=== PATIENT | female | born 1985 | race Caucasian/White ===

== ENCOUNTER 2016-09-05 21:07 | Emergency (ER) | payer OTHER ==
--- NOTE | 2016-09-05 21:59 | DIAGNOSTIC IMAGING REPORT ---
PROCEDURE: XR CHEST 2 VIEW INDICATION: SHORTNESS OF BREATH TECHNIQUE: PA and lateral view. COMPARISON: None. FINDINGS: Lungs are clear. Cardiovascular structures are normal. Bony thorax is unremarkable. IMPRESSION: 1. Negative chest.
--- NOTE | 2016-09-06 00:23 | ED ORDER SUMMARY ---
..... Patient: RIVAS STORY OrderSheet [facility] VisitID: [id number] [address] [place] [address] 30y, F Registration Date/Time: 09/05/2016 ORDER SHEET Weight: 149.6 kg (stated) Allergies: Latex, Penicill, Penicillin, Sulfa Antibiotics, Amitriptyline, Nortriptyline GENERAL ORDERS: UA-Culture if indicated Urgent (21:09/05/2016 Kody CANDELARIO) (Ack 21:35 CHagerty ER Finance Associate) (22:37 CHagerty ER Finance Associate) Cardiac Panel Stat (:09/05/2016 Kody CANDELARIO) (21:35 MCook R.N.) (Ack 21:35 CHagerty ER Finance Associate) PT with INR Urgent (:09/05/2016 Kody CANDELARIO) (21:35 MCook R.N.) (Ack 21:35 CHagerty ER Finance Associate) BNP Urgent (:09/05/2016 Kody CANDELARIO) (21:35 MCook R.N.) (Ack 21:35 CHagerty ER Finance Associate) D-Dimer Urgent (:09/05/2016 Kody CANDELARIO) (21:35 MCook R.N.) (Ack 21:35 CHagerty ER Finance Associate) Lipase Urgent (:09/05/2016 Kody CANDELARIO) (21:35 MCook R.N.) (Ack 21:35 CHagerty ER Finance Associate) Amylase Urgent (:09/05/2016 Kody CANDELARIO) (21:35 MCook R.N.) (Ack 21:35 CHagerty ER Finance Associate) Urine Drug Screen Urgent (21:09/05/2016 Kody CANDELARIO) (Ack 21:35 CHagerty ER Finance Associate) (22:37 CHagerty ER Finance Associate) TSH Urgent (:09/05/2016 Kody CANDELARIO) (21:35 MCook R.N.) (Ack 21:35 CHagerty ER Finance Associate) CRP Urgent (:09/05/2016 Kody CANDELARIO) (21:35 MCook R.N.) (Ack 21:35 CHagerty ER Finance Associate) Grain Mill Products Inspector (Continuous) (21:33 09/05/2016 Kody CANDELARIO) (Ack 21:35 CHagerty ER Finance Associate) (21:40 MCook R.N.) Chest 2V Urgent (21:33 09/05/2016 Kody CANDELARIO) (Ack 21:35 CHagerty ER Finance Associate) (21:48 MCampbell) EKG - ER Stat (21:34 09/05/2016 Kody CANDELARIO) (21:35 Kekek R.N.) (Ack 21:35 CHagerty ER Finance Associate) Pulse oximeter (21:34 09/05/2016 Kody CANDELARIO) (21:35 Kekek R.N.) (Ack 21:35 CHagerty ER Finance Associate) US Venous Bilat Urgent (21:34 09/05/2016 Kody CANDELARIO) (Ack 21:36 CHagerty ER Finance Associate) (22:37 CHagerty ER Finance Associate) Old Records ([place].) (21:40 09/05/2016 Kody CANDELARIO) (Ack 21:53 CHagerty ER Finance Associate) (22:36 CHagerty ER Finance Associate) MEDICATION ORDERS: IV FLUIDS: IV Saline Lock (21:34 09/05/2016 Kody CANDELARIO) (21:40 Elma R.N.) ORDER SHEET NOTES: [Electronically signed by Quinn Nam R.N. (01:09/06/2016)] [Electronically signed by Dominick Beal MD (07:30 09/06/2016)] [Electronically locked/signed by Quinn Nam R.N. (01:09 09/06/2016)]
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
--- NOTE | 2016-09-06 00:23 | ED ORDER SUMMARY ---
..... Patient: RIVAS STORY OrderSheet [facility] VisitID: [id number] [address] [place] [address] 30y, F Registration Date/Time: 09/05/2016 ORDER SHEET Weight: 149.6 kg (stated) Allergies: Latex, Penicill, Penicillin, Sulfa Antibiotics, Amitriptyline, Nortriptyline GENERAL ORDERS: UA-Culture if indicated Urgent (21:09/05/2016 Kody CANDELARIO) (Ack 21:35 CHagerty ER Gauge Operator) (22:37 CHagerty ER Gauge Operator) Cardiac Panel Stat (:09/05/2016 Kody CANDELARIO) (21:35 MCook R.N.) (Ack 21:35 CHagerty ER Gauge Operator) PT with INR Urgent (:09/05/2016 Kody CANDELARIO) (21:35 MCook R.N.) (Ack 21:35 CHagerty ER Gauge Operator) BNP Urgent (:09/05/2016 Kody CANDELARIO) (21:35 MCook R.N.) (Ack 21:35 CHagerty ER Gauge Operator) D-Dimer Urgent (:09/05/2016 Kody CANDELARIO) (21:35 MCook R.N.) (Ack 21:35 CHagerty ER Gauge Operator) Lipase Urgent (:09/05/2016 Kody CANDELARIO) (21:35 MCook R.N.) (Ack 21:35 CHagerty ER Gauge Operator) Amylase Urgent (:09/05/2016 Kody CANDELARIO) (21:35 MCook R.N.) (Ack 21:35 CHagerty ER Gauge Operator) Urine Drug Screen Urgent (21:09/05/2016 Kody CANDELARIO) (Ack 21:35 CHagerty ER Gauge Operator) (22:37 CHagerty ER Gauge Operator) TSH Urgent (:09/05/2016 Kody CANDELARIO) (21:35 MCook R.N.) (Ack 21:35 CHagerty ER Gauge Operator) CRP Urgent (:09/05/2016 Kody CANDELARIO) (21:35 MCook R.N.) (Ack 21:35 CHagerty ER Gauge Operator) Hand Reamer (Continuous) (21:33 09/05/2016 Kody CANDELARIO) (Ack 21:35 CHagerty ER Gauge Operator) (21:40 MCook R.N.) Chest 2V Urgent (21:33 09/05/2016 Kody CANDELARIO) (Ack 21:35 CHagerty ER Gauge Operator) (21:48 MCampbell) EKG - ER Stat (21:34 09/05/2016 Kody CANDELARIO) (21:35 Kekek R.N.) (Ack 21:35 CHagerty ER Gauge Operator) Pulse oximeter (21:34 09/05/2016 Kody CANDELARIO) (21:35 Kekek R.N.) (Ack 21:35 CHagerty ER Gauge Operator) US Venous Bilat Urgent (21:34 09/05/2016 Kody CANDELARIO) (Ack 21:36 CHagerty ER Gauge Operator) (22:37 CHagerty ER Gauge Operator) Old Records ([place] about [place].) (21:40 09/05/2016 Kody CANDELARIO) (Ack 21:53 CHagerty ER Gauge Operator) (22:36 CHagerty ER Gauge Operator) MEDICATION ORDERS: IV FLUIDS: IV Saline Lock (21:34 09/05/2016 Kody CANDELARIO) (21:40 Elma R.N.) ORDER SHEET NOTES: [Electronically signed by Quinn Nam R.N. (01:09/06/2016)] [Electronically signed by Dominick Beal MD (07:30 09/06/2016)] [Electronically locked/signed by Quinn Nam R.N. (01:09 09/06/2016)]
--- NOTE | 2016-09-06 00:23 | ED NURSING NOTES ---
Clinical Report - Nurses [facility] [address] [place] [address] 09/05/2016 21:11 Patient: RIVAS STORY TRIAGE Triage time 21:Sep 05 2016. Chief Complaint: CHEST PAIN and DISCOMFORT and SHORTNESS OF BREATH (Pressure to anterior chest, swelling to BLE). Alert. No acute distress. SEPSIS SCREEN: Sepsis Screen. Negative (no infection suspected/documented). --21:22 Quinn Nam R.N. 21:18 09/05/16. BP: 147/80. HR: 91. RR: 16. O2 saturation: 100% on room air. Pain level now: 11/28. --21:22 Quinn Nam R.N. 21:18 09/05/16. Temp: 98.1 F. --00:52 Quinn Nam R.N. Weight: 149.6 kg stated. Height/Length: 70 inches Per Patient. BMI: 47.3. --21:17 Quinn Nam R.N. Medications Adderall. --21:20 Quinn Nam R.N. Vivanz. --21:20 Quinn Nam R.N. Temazepam Oral. --21:20 Quinn Nam R.N. ClonazePAM Oral. --21:20 Quinn Nam R.N. Allergies Latex. --21:19 Quinn Nam R.N. Penicill. --21:19 Quinn Nam R.N. Penicillin. Sulfa Antibiotics. --21:19 Quinn Nam R.N. Amitriptyline. --21:19 Quinn Nma R.N. Nortriptyline. --21:19 Quinn Nam R.N. History Arrived by private vehicle. Historian: patient. This started today. She has had difficulty breathing. PAST MEDICAL HX: Immunizations: up-to-date. Denies current . --21:22 Quinn Nam R.N. SOCIAL HX: Smoker- current status unknown (cigarette). Occasional alcohol use. History of drug use: marijuana. ABUSE ASSESSMENT: Abuse assessment: The patient was asked "Do you feel safe in your home?". No report of abuse. SELF HARM ASSESSMENT: A self harm assessment was performed. The patient answered "yes" to the question "Have you recently felt down, depressed, or hopeless?" and "Are you here because you tried to hurt yourself?" and "no" to the question "Do you have thoughts of harming or killing yourself?" and "Have you recently had thoughts about harming or killing others?". FALL RISK ASSESSMENT: Fall risk assessment completed. No fall risk identified. NUTRITIONAL RISK ASSESSMENT: The nutritional risk assessment revealed no deficiencies. FUNCTIONAL ASSESSMENT: Functional assessment: no impairments noted. LEARNING NEEDS ASSESSMENT: The learning needs assessment revealed no barriers. SKIN INTEGRITY ASSESSMENT: Skin integrity risk assessment completed. No skin integrity risk identified. --21:24 Quinn Nam R.N. PROBLEMS: Anxiety. Insect Bite(s). Dehydration. Vomiting. LNMP - Last Normal Menstrual Period. Hypertension. Edometriosis. --21:21 Quinn Nam R.N. ADDITIONAL SURGERIES: Appendectomy. Cholecystectomy. . Laparoscopy. Leep procedure. Tonsillectomy & Adenoidectomy. --21:21 Quinn Nam R.N. Hysterectomy. Oophorectomy. Presacral neurectomy. --21:21 Quinn Nam R.N. Assessment The patient states feels the same. --21:24 Quinn Nam R.N. Interventions ID band on patient. To room. --21:24 Quinn Nam R.N. PHYSICAL ASSESSMENT GENERAL / NEURO / PSYCH: Alert. Oriented X 4. Appears in distress. HEENT: Mucous membranes are pink. RESPIRATORY: Mild respiratory distress. No chest pain reproduced on physical exam. CVS: Pulses within normal limits. Capillary refill less than 2 seconds. GI / : Abdomen soft. EXTREMITIES: Bilateral 1+ edema of the lower extremities involving both feet, both ankles and both lower legs. SKIN: Skin is warm and dry. --21:27 Quinn Nam R.N. NURSING PROGRESS NOTES The plan of care for this patient has been created. Monitoring of patient in place. Patient gowned. Head of bed elevated. Reassurance given. Two patient identifiers checked. Call light placed in reach. Bed placed in lowest position. Patient ready for evaluation- chart flagged and ED physician notified. ( MD at bedside assessing Pt, monitoring in place.). --21:28 Quinn Nam R.N. EKG time: (2122). EKG was performed by a tech and shown to the ED physician. Patient ID band checked for patient name and birthdate: patient confirmed. Blood samples drawn from the right antecubital space peripheral IV site by nurse per protocol ; labeled in presence of the patient and sent to lab: rainbow set. Line flushed with 10 mL normal saline post blood draw. --21:29 Quinn Nam R.N. 21:35 09/05/2016 Site #1 started via IV in the right antecubital space with an 20g angiocath, with aseptic technique and good blood return; one attempt. Blood drawn: rainbow set. Labeled in the presence of the patient and sent to the lab. Saline lock flushed with 10 mL saline. --21:40 Quinn Nam R.N. Patient transported to radiology by stretcher with FST21. (21:40 Sep 05 2016). --21:41 Quinn Nam R.N. Patient returned from radiology by stretcher with FST21. (21:49 Sep 05 2016). --21:49 Quinn Nam R.N. Patient ID band checked for patient name and birthdate: patient confirmed. Instructions provided to collect clean catch urine and patient verbalized understanding. Clean catch urine collected with return of gabriele-colored cloudy urine; sample sent to lab for urinalysis and drug screen. Specimen labeled in the presence of the patient. --22:09 Quinn Nam R.N. 22:07 09/05/16. BP: 143/80. HR: 100. RR: 18. O2 saturation: 98% on room air. --22:09 Quinn Nam R.N. 22:37 09/05/16. BP: 120/69. HR: 86. O2 saturation: 97% on room air. --22:38 Quinn Nam R.N. ( US completed.). --22:38 Quinn Nam R.N. 23:16 09/05/16. BP: 128/88. HR: 88. O2 saturation: 94% on room air. --23:16 Quinn Nam R.N. 00:17 09/06/16. BP: 121/64. HR: 80. RR: 16. O2 saturation: 94% on room air. FLACC pain scale: 4/10. --00:18 Quinn Nam R.N. ( Pt is resting, apparently asleep, VSS.). --00:18 Quinn Nam R.N. 00:50 09/06/2016 Site #1 removed upon discharge. Bandaid applied. --00:50 Quinn Nam R.N. DISPOSITION / DISCHARGE Condition at departure: stable. The goals identified in the patient's plan of care were met. No learning barriers present. Discharge instructions provided and reviewed with the patient. Reviewed medication(s) side effects, precautions, dosing and course information. Prescription(s) given to the patient (Lasix). Reviewed referral to a final armature tester for followup. Activity restrictions reviewed (No strenuous activity). Patient verbalized understanding. Written instructions provided in [place]. The patient was discharged home. She left the Emergency Department ambulatory and via private vehicle. Patient driving. --00:44 Quinn Nam R.N. 00:41 09/06/16. BP: 107/61. HR: 95. RR: 16. O2 saturation: 94% on room air. Temp: 97.6 F. Pain level now: 8/10. --00:44 Quinn Nam R.N. ( Pt to drive herself home, she states she will be okay to drive.). --00:50 Quinn Nam R.N. ( Walked Pt out to front doors of ED.). --01:08 Quinn Nam R.N. Locked/Released at 09/06/2016 1:09 by Quinn Nam R.N.
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
--- NOTE | 2016-09-06 00:23 | ED NURSING NOTES ---
Clinical Report - Nurses [facility] [address] [place] [address] 09/05/2016 21:11 Patient: RIVAS STORY TRIAGE Triage time 21:Sep 05 2016. Chief Complaint: CHEST PAIN and DISCOMFORT and SHORTNESS OF BREATH (Pressure to anterior chest, swelling to BLE). Alert. No acute distress. SEPSIS SCREEN: Sepsis Screen. Negative (no infection suspected/documented). --21:22 Quinn Nam R.N. 21:18 09/05/16. BP: 147/80. HR: 91. RR: 16. O2 saturation: 100% on room air. Pain level now: 11/28. --21:22 Quinn Nam R.N. 21:18 09/05/16. Temp: 98.1 F. --00:52 Quinn Nam R.N. Weight: 149.6 kg stated. Height/Length: 70 inches Per Patient. BMI: 47.3. --21:17 Quinn Nam R.N. Medications Adderall. --21:20 Quinn Nam R.N. Vivanz. --21:20 Quinn Nam R.N. Temazepam Oral. --21:20 Quinn Nam R.N. ClonazePAM Oral. --21:20 Quinn Nam R.N. Allergies Latex. --21:19 Quinn Nam R.N. Penicill. --21:19 Quinn Nam R.N. Penicillin. Sulfa Antibiotics. --21:19 Quinn Nam R.N. Amitriptyline. --21:19 Quinn Nam R.N. Nortriptyline. --21:19 Quinn Nam R.N. History Arrived by private vehicle. Historian: patient. This started today. She has had difficulty breathing. PAST MEDICAL HX: Immunizations: up-to-date. Denies current . --21:22 Quinn Nam R.N. SOCIAL HX: Smoker- current status unknown (cigarette). Occasional alcohol use. History of drug use: marijuana. ABUSE ASSESSMENT: Abuse assessment: The patient was asked "Do you feel safe in your home?". No report of abuse. SELF HARM ASSESSMENT: A self harm assessment was performed. The patient answered "yes" to the question "Have you recently felt down, depressed, or hopeless?" and "Are you here because you tried to hurt yourself?" and "no" to the question "Do you have thoughts of harming or killing yourself?" and "Have you recently had thoughts about harming or killing others?". FALL RISK ASSESSMENT: Fall risk assessment completed. No fall risk identified. NUTRITIONAL RISK ASSESSMENT: The nutritional risk assessment revealed no deficiencies. FUNCTIONAL ASSESSMENT: Functional assessment: no impairments noted. LEARNING NEEDS ASSESSMENT: The learning needs assessment revealed no barriers. SKIN INTEGRITY ASSESSMENT: Skin integrity risk assessment completed. No skin integrity risk identified. --21:24 Quinn Nam R.N. PROBLEMS: Anxiety. Insect Bite(s). Dehydration. Vomiting. LNMP - Last Normal Menstrual Period. Hypertension. Edometriosis. --21:21 Quinn Nam R.N. ADDITIONAL SURGERIES: Appendectomy. Cholecystectomy. . Laparoscopy. Leep procedure. Tonsillectomy & Adenoidectomy. --21:21 Quinn Nam R.N. Hysterectomy. Oophorectomy. Presacral neurectomy. --21:21 Quinn Nam R.N. Assessment The patient states feels the same. --21:24 Quinn Nam R.N. Interventions ID band on patient. To room. --21:24 Quinn Nam R.N. PHYSICAL ASSESSMENT GENERAL / NEURO / PSYCH: Alert. Oriented X 4. Appears in distress. HEENT: Mucous membranes are pink. RESPIRATORY: Mild respiratory distress. No chest pain reproduced on physical exam. CVS: Pulses within normal limits. Capillary refill less than 2 seconds. GI / : Abdomen soft. EXTREMITIES: Bilateral 1+ edema of the lower extremities involving both feet, both ankles and both lower legs. SKIN: Skin is warm and dry. --21:27 Quinn Nam R.N. NURSING PROGRESS NOTES The plan of care for this patient has been created. Monitoring of patient in place. Patient gowned. Head of bed elevated. Reassurance given. Two patient identifiers checked. Call light placed in reach. Bed placed in lowest position. Patient ready for evaluation- chart flagged and ED physician notified. ( MD at bedside assessing Pt, monitoring in place.). --21:28 Quinn Nam R.N. EKG time: (2122). EKG was performed by a tech and shown to the ED physician. Patient ID band checked for patient name and birthdate: patient confirmed. Blood samples drawn from the right antecubital space peripheral IV site by nurse per protocol ; labeled in presence of the patient and sent to lab: rainbow set. Line flushed with 10 mL normal saline post blood draw. --21:29 Quinn Nam R.N. 21:35 09/05/2016 Site #1 started via IV in the right antecubital space with an 20g angiocath, with aseptic technique and good blood return; one attempt. Blood drawn: rainbow set. Labeled in the presence of the patient and sent to the lab. Saline lock flushed with 10 mL saline. --21:40 Quinn Nam R.N. Patient transported to radiology by stretcher with [employer]. (21:40 Sep 05 2016). --21:41 Quinn Nam R.N. Patient returned from radiology by stretcher with [employer]. (21:49 Sep 05 2016). --21:49 Quinn Nam R.N. Patient ID band checked for patient name and birthdate: patient confirmed. Instructions provided to collect clean catch urine and patient verbalized understanding. Clean catch urine collected with return of gabriele-colored cloudy urine; sample sent to lab for urinalysis and drug screen. Specimen labeled in the presence of the patient. --22:09 Quinn Nam R.N. 22:07 09/05/16. BP: 143/80. HR: 100. RR: 18. O2 saturation: 98% on room air. --22:09 Quinn Nam R.N. 22:37 09/05/16. BP: 120/69. HR: 86. O2 saturation: 97% on room air. --22:38 Quinn Nam R.N. ( US completed.). --22:38 Quinn Nam R.N. 23:16 09/05/16. BP: 128/88. HR: 88. O2 saturation: 94% on room air. --23:16 Quinn Nam R.N. 00:17 09/06/16. BP: 121/64. HR: 80. RR: 16. O2 saturation: 94% on room air. FLACC pain scale: 4/10. --00:18 Quinn Nam R.N. ( Pt is resting, apparently asleep, VSS.). --00:18 Quinn Nam R.N. 00:50 09/06/2016 Site #1 removed upon discharge. Bandaid applied. --00:50 Quinn Nam R.N. DISPOSITION / DISCHARGE Condition at departure: stable. The goals identified in the patient's plan of care were met. No learning barriers present. Discharge instructions provided and reviewed with the patient. Reviewed medication(s) side effects, precautions, dosing and course information. Prescription(s) given to the patient (Lasix). Reviewed referral to a media monitor for followup. Activity restrictions reviewed (No strenuous activity). Patient verbalized understanding. Written instructions provided in Brazilian. The patient was discharged home. She left the Emergency Department ambulatory and via private vehicle. Patient driving. --00:44 Quinn Nam R.N. 00:41 09/06/16. BP: 107/61. HR: 95. RR: 16. O2 saturation: 94% on room air. Temp: 97.6 F. Pain level now: 8/10. --00:44 Quinn Nam R.N. ( Pt to drive herself home, she states she will be okay to drive.). --00:50 Quinn Nam R.N. ( Walked Pt out to front doors of ED.). --01:08 Quinn Nam R.N. Locked/Released at 09/06/2016 1:09 by Quinn Nam R.N.
--- NOTE | 2016-09-06 00:28 | DIAGNOSTIC IMAGING REPORT ---
PROCEDURE: US VENOUS - BILATERAL EXT INDICATION: SWELLING TECHNIQUE: Color Doppler duplex imaging of the deep and superficial venous system without and with compression. COMPARISON: None. FINDINGS: RIGHT LOWER EXTREMITY: Deep and superficial venous system of the right lower extremity is within normal limits. There is no evidence of deep vein thrombosis or superficial thrombophlebitis. LEFT LOWER EXTREMITY: Deep and superficial venous system of the left lower extremity is within normal limits. There is no evidence of deep vein thrombosis or superficial thrombophlebitis. IMPRESSION: 1. Negative venous ultrasound of the bilateral lower extremities.
--- NOTE | 2016-09-06 07:30 | ED MED RECONCILIATION SUMMARY ---
Patient: RIVAS STORY Medication Reconciliation Report [facility] VisitID: [id number] [address] [place] [address] 30y, F Registration Date/Time: 09/05/2016 Weight: 149.6 kg Height/Length: 70 in. BMI: 47.3 ALLERGIES: Amitriptyline, Latex, Nortriptyline, Penicill, Penicillin, Sulfa Antibiotics The patient's Home Medications are listed below: CONTINUE TAKING THE FOLLOWING MEDICATIONS: Adderall ClonazePAM Oral Temazepam Oral Vivanz The source(s) of the original Home Medication information: Not obtained. The following Medications were given to the patient in the Emergency Department: None. The following Medications were prescribed to the patient: Lasix 20 mg a day for 2 days. -- Dominick Beal MD
--- NOTE | 2016-09-06 07:30 | ED DISCHARGE INSTRUCTIONS ---
Patient: RIVAS STORY General Instructions [facility] VisitID: [id number] [address] [place] [address] 30y, F Registration Date/Time: 09/05/2016 Leg edema. INSTRUCTIONS No strenuous activity. Avoid stimulants (such as cigarettes, coffee, cold medicines, sinus medicines, street drugs). Do not smoke. No alcohol. Warnings: Further evaluation is necessary. GENERAL WARNINGS: Return or contact your physician immediately if your condition worsens or changes unexpectedly, if not improving as expected, or if other problems arise. Your Current Medications: CONTINUE TAKING THE FOLLOWING MEDICATIONS: Adderall*. ClonazePAM Oral. Temazepam Oral. Vivanz*. Prescription Medications: Lasix 20 mg a day for 2 days. Follow-up: Follow up with a telehealth coordinator- as recommended by your primary care physician. Understanding of the discharge instructions verbalized by patient. No strenuous activity. (Electronically signed by Dominick Beal MD 09/06/2016 7:30)
--- NOTE | 2016-09-06 07:30 | ED MED RECONCILIATION SUMMARY ---
Patient: RIVAS STORY Medication Reconciliation Report [facility] VisitID: [id number] [address] [place] [address] 30y, F Registration Date/Time: 09/05/2016 Weight: 149.6 kg Height/Length: 70 in. BMI: 47.3 ALLERGIES: Amitriptyline, Latex, Nortriptyline, Penicill, Penicillin, Sulfa Antibiotics The patient's Home Medications are listed below: CONTINUE TAKING THE FOLLOWING MEDICATIONS: Adderall ClonazePAM Oral Temazepam Oral Vivanz The source(s) of the original Home Medication information: Not obtained. The following Medications were given to the patient in the Emergency Department: None. The following Medications were prescribed to the patient: Lasix 20 mg a day for 2 days. -- Dominick Beal MD
--- NOTE | 2016-09-06 07:30 | ED MAR SUMMARY ---
..... Medication Administration Record [facility] [address] [place], [place] [id number] Patient: RIVAS STORY Visit ID: [id number] 30y, F Weight: 149.6 kg Height/Length: 70 in BMI: 47.3 ALLERGIES: Nortriptyline, Amitriptyline, Penicillin, Sulfa Antibiotics, Penicill, Latex
--- NOTE | 2016-09-06 07:30 | ED MAR SUMMARY ---
..... Medication Administration Record [facility] [address] [place] [id number] Patient: RIVAS STORY Visit ID: [id number] 30y, F Weight: 149.6 kg Height/Length: 70 in BMI: 47.3 ALLERGIES: Nortriptyline, Amitriptyline, Penicillin, Sulfa Antibiotics, Penicill, Latex
--- NOTE | 2016-09-06 07:30 | ED DISCHARGE INSTRUCTIONS ---
Patient: RIVAS STORY General Instructions [facility] VisitID: [id number] [address] [place] [address] 30y, F Registration Date/Time: 09/05/2016 Leg edema. INSTRUCTIONS No strenuous activity. Avoid stimulants (such as cigarettes, coffee, cold medicines, sinus medicines, street drugs). Do not smoke. No alcohol. Warnings: Further evaluation is necessary. GENERAL WARNINGS: Return or contact your physician immediately if your condition worsens or changes unexpectedly, if not improving as expected, or if other problems arise. Your Current Medications: CONTINUE TAKING THE FOLLOWING MEDICATIONS: Adderall*. ClonazePAM Oral. Temazepam Oral. Vivanz*. Prescription Medications: Lasix 20 mg a day for 2 days. Follow-up: Follow up with a net developer programmer- as recommended by your primary care physician. Understanding of the discharge instructions verbalized by patient. No strenuous activity. (Electronically signed by Dominick Beal MD 09/06/2016 7:30)
== END 2016-09-06 00:50 | disposition home or self-care (01) ==
LOC: ED SRH 21:07
DX: R60.0 Localized edema (principal); I10 Essential (primary) hypertension; R06.00 Dyspnea, unspecified; F17.210 Nicotine dependence, cigarettes, uncomplicated; F12.10 Cannabis abuse, uncomplicated; Z79.899 Other long term (current) drug therapy; Z88.0 Allergy status to penicillin; Z88.2 Allergy status to sulfonamides
CPT/HCPCS: 90004; 90100; 90469; 90616; 91320; 91556; 91585; 92235; 92530; 92610; 92720; 92760; 92761; 92762; 92763; 92764; 92765; 92766; 92767; 93140; 94060; 95059